=== PATIENT | male | born 1965 | race Caucasian/White ===

== ENCOUNTER → 2018-02-04 | Outpatient (CLI) | payer OTHER ==
[~2018-02-04] MED LIST: ALL180 PO; FLNIN NAE; LRT5 PO
--- NOTE | 2018-02-04 09:29 | DIAGNOSTIC IMAGING REPORT ---
TESTICULAR ULTRASOUND CLINICAL HISTORY: Palpable abnormality with epididymal thickening COMPARISON STUDY: No previous studies for comparison. FINDINGS: The right testis measures 49 x 31 x 20 mm. The left testis measures 42 x 26 x 22 mm. No intratesticular masses are visualized. There is no evidence of testicular torsion. There are small bilateral epididymal cysts measuring up to 4 mm. On the right, there is a nonspecific extratesticular 10 x 4 mm hypoechoic structure adjacent to the right epididymis. IMPRESSION: 1. No evidence of intratesticular mass 2. No evidence of testicular torsion 3. Tiny epididymal cysts 4. 10 x 4 mm hypoechoic structure adjacent the right epididymis. This is of questionable clinical significance. Electronically signed by: Tacos Mao M.D. 02/04/2018 9:28 AM Dictated Date/Time: 02/04/2018 9:25 AM
== END | disposition home or self-care (01) ==
LOC: C.ULTR 08:33
PROVIDERS: ATTEND Family Medicine
DX: Z00.00 Encounter for general adult medical examination without abnormal findings (principal); E03.9 Hypothyroidism, unspecified; N50.89 Other specified disorders of the male genital organs; N50.3 Cyst of epididymis